=== PATIENT | female | born 1930 | race Caucasian/White ===

== ENCOUNTER 2017-09-04 21:45 | Inpatient (IN) | payer OTHER ==
[~2017-09-04] VITALS: Ht 154.9 cm; Wt 67.1 kg
[2017-09-04 23:10] LABS: BASOPHIL % 1.7 % (0-2); PLATELET COUNT 312 x10^3mcL (130-400)
[2017-09-04 23:11] LABS: RED CELL DISTRIBUTION WIDTH 15.3 % (11.5-14.5)
[2017-09-04 23:35] LABS: microscopic required? YES; urine erythrocyte NEGATIVE (NEGATIVE)
[2017-09-04 23:39] LABS: CHLORIDE SERUM 98 mmol/L (98-107); CREATININE SERUM 1.4 mg/dL (0.6-1.0); GLUCOSE SERUM 130 mg/dL (74-106); SODIUM SERUM 131 mmol/L (136-145)
[2017-09-04 23:43] LABS: ALKALINE PHOSPHATASE 658 U/L (46-116); ALT/SGPT 262 U/L (14-59); AST/SGOT 297 U/L (15-37); BILIRUBIN TOTAL 5.2 mg/dL (0.20-1.00); LIPASE 351 IU/L (73-393); TOTAL PROTEIN, SERUM 6.5 g/dL (6.4-8.2)
[2017-09-04 23:44] LABS: ALBUMIN 2.7 g/dL (3.4-5.0)
[2017-09-05] MEDS ORDERED: SIMVASTATIN20 M1 PO (00:14)
[2017-09-05] MEDS ORDERED: LOSARTAN POTASS50 M1 PO (00:15)
[2017-09-05] MEDS ORDERED: AMBIEN5 MG PO (00:15)
[2017-09-05] MEDS ORDERED: LEVOTHYROXIN0.025 M2 PO (00:15)
[2017-09-05] MEDS ORDERED: PANTOPRAZOLE SO40 M1 PO (00:16)
[2017-09-05] MEDS ORDERED: XARELTO10 M1 PO (00:17)
[2017-09-05] MEDS ORDERED: CATAPRES0.1 MG PO (00:18)
[2017-09-05] MEDS ORDERED: COR3 PO (00:19)
[2017-09-05 02:55] VITALS: BP 132/58
[2017-09-05 03:22] LABS: FREE T4 2.66 ng/dL (0.76-1.46)
[2017-09-05 03:23] LABS: MAGNESIUM 2.1 mg/dL (1.8-2.4); PHOSPHOROUS 2.5 mg/dL (2.5-4.9)
[2017-09-05 03:44] LABS: FREE THYROXINE INDEX 8.7 ug/dL (1.4-4.5); T4(THYROXINE) 21.7 ug/dL (4.7-13.3)
[2017-09-05 04:00] VITALS: BP 109/55
[2017-09-05 05:23] LABS: T3 TOTAL 0.51 ng/mL
[2017-09-05 07:13] LABS: BASOPHIL % 1.1 % (0-2); PLATELET COUNT 305 x10^3mcL (130-400)
[2017-09-05 07:14] LABS: RED CELL DISTRIBUTION WIDTH 15.4 % (11.5-14.5)
[2017-09-05 07:17] LABS: CALCIUM 8.9 mg/dL (8.5-10.1); CARBON DIOXIDE 25.7 mmol/L (21-32); CHLORIDE SERUM 99 mmol/L (98-107); CREATININE SERUM 1.3 mg/dL (0.6-1.0); GLUCOSE SERUM 101 mg/dL (74-106); POTASSIUM SERUM 3.5 mmol/L (3.5-5.1); SODIUM SERUM 130 mmol/L (136-145)
[2017-09-05 08:40] VITALS: BP 107/86
[2017-09-05 09:41] LABS: BILIRUBIN DIRECT 4.64 mg/dL (0.0-0.2); BILIRUBIN TOTAL 5.33 mg/dL (0.20-1.00); TOTAL PROTEIN, SERUM 6.5 g/dL (6.4-8.2)
[2017-09-05 09:42] LABS: ALBUMIN 2.9 g/dL (3.4-5.0)
[2017-09-05 20:45] VITALS: BP 124/47
[2017-09-06 04:52] VITALS: BP 118/55
[2017-09-06 05:04] VITALS: BP 140/83
[2017-09-06 07:45] LABS: BASOPHIL % 0.9 % (0-2); PLATELET COUNT 296 x10^3mcL (130-400)
[2017-09-06 07:51] LABS: RED CELL DISTRIBUTION WIDTH 15.7 % (11.5-14.5)
[2017-09-06 08:03] LABS: CALCIUM 9.2 mg/dL (8.5-10.1); CARBON DIOXIDE 21.4 mmol/L (21-32); CHLORIDE SERUM 103 mmol/L (98-107); CREATININE SERUM 1.2 mg/dL (0.6-1.0); GLUCOSE SERUM 93 mg/dL (74-106); MAGNESIUM 2.1 mg/dL (1.8-2.4); PHOSPHOROUS 3.3 mg/dL (2.5-4.9); POTASSIUM SERUM 3.8 mmol/L (3.5-5.1); SODIUM SERUM 134 mmol/L (136-145)
[2017-09-06 08:06] LABS: BILIRUBIN DIRECT 4.47 mg/dL (0.0-0.2); BILIRUBIN TOTAL 4.8 mg/dL (0.20-1.00); TOTAL PROTEIN, SERUM 6.6 g/dL (6.4-8.2)
[2017-09-06 08:08] LABS: ALBUMIN 2.8 g/dL (3.4-5.0)
[2017-09-06 09:35] VITALS: BP 121/58
[2017-09-06 13:10] VITALS: BP 140/71
[2017-09-06 17:41] VITALS: BP 148/69
[2017-09-06 21:43] VITALS: BP 148/68
[2017-09-07 05:51] VITALS: BP 144/63
[2017-09-07 06:27] LABS: BASOPHIL % 0.4 % (0-2); PLATELET COUNT 315 x10^3mcL (130-400)
[2017-09-07 06:43] LABS: RED CELL DISTRIBUTION WIDTH 15.4 % (11.5-14.5)
[2017-09-07 07:05] LABS: ALKALINE PHOSPHATASE 616 U/L (46-116); ALT/SGPT 243 U/L (14-59); AST/SGOT 262 U/L (15-37); BILIRUBIN TOTAL 5.4 mg/dL (0.20-1.00); CALCIUM 8.5 mg/dL (8.5-10.1); CHLORIDE SERUM 105 mmol/L (98-107); CREATININE SERUM 1.1 mg/dL (0.6-1.0); GLUCOSE SERUM 84 mg/dL (74-106); MAGNESIUM 2.1 mg/dL (1.8-2.4); PHOSPHOROUS 3.4 mg/dL (2.5-4.9); POTASSIUM SERUM 4.6 mmol/L (3.5-5.1); SODIUM SERUM 138 mmol/L (136-145); TOTAL PROTEIN, SERUM 6.7 g/dL (6.4-8.2)
[2017-09-07 07:13] LABS: ALBUMIN 2.7 g/dL (3.4-5.0)
[2017-09-07 08:56] VITALS: BP 142/61
[2017-09-07 17:01] VITALS: BP 147/64
[2017-09-07 20:57] VITALS: BP 149/68
[2017-09-08 05:59] VITALS: BP 144/69
[2017-09-08 06:42] LABS: BASOPHIL % 0.8 % (0-2); PLATELET COUNT 310 x10^3mcL (130-400)
[2017-09-08 07:08] LABS: ALKALINE PHOSPHATASE 575 U/L (46-116); ALT/SGPT 256 U/L (14-59); AST/SGOT 268 U/L (15-37); BILIRUBIN TOTAL 5.2 mg/dL (0.20-1.00); CALCIUM 8.8 mg/dL (8.5-10.1); CARBON DIOXIDE 24.3 mmol/L (21-32); CHLORIDE SERUM 105 mmol/L (98-107); CREATININE SERUM 1.1 mg/dL (0.6-1.0); GLUCOSE SERUM 77 mg/dL (74-106); MAGNESIUM 2.1 mg/dL (1.8-2.4); PHOSPHOROUS 3.5 mg/dL (2.5-4.9); POTASSIUM SERUM 4.9 mmol/L (3.5-5.1); SODIUM SERUM 138 mmol/L (136-145); TOTAL PROTEIN, SERUM 6.7 g/dL (6.4-8.2)
[2017-09-08 07:11] LABS: ALBUMIN 2.8 g/dL (3.4-5.0)
[2017-09-08 08:12] VITALS: BP 134/74
[2017-09-08 08:48] VITALS: BP 121/64
[2017-09-08 12:16] VITALS: BP 146/65
[2017-09-08 16:35] VITALS: BP 141/68
[2017-09-08 21:39] VITALS: BP 129/63
[2017-09-09 04:39] VITALS: BP 128/61
[2017-09-09 07:18] LABS: ALKALINE PHOSPHATASE 566 U/L (46-116); ALT/SGPT 307 U/L (14-59); AST/SGOT 307 U/L (15-37); BILIRUBIN TOTAL 4.92 mg/dL (0.20-1.00); CALCIUM 9.7 mg/dL (8.5-10.1); CHLORIDE SERUM 103 mmol/L (98-107); CREATININE SERUM 1.2 mg/dL (0.6-1.0); GLUCOSE SERUM 90 mg/dL (74-106); SODIUM SERUM 136 mmol/L (136-145); TOTAL PROTEIN, SERUM 7.2 g/dL (6.4-8.2)
[2017-09-09 07:22] LABS: ALBUMIN 2.9 g/dL (3.4-5.0)
[2017-09-09 08:28] LABS: BASOPHIL % 1.5 % (0-2); PLATELET COUNT 351 x10^3mcL (130-400)
[2017-09-09 08:38] LABS: RED CELL DISTRIBUTION WIDTH 14.8 % (11.5-14.5)
[2017-09-09 09:18] VITALS: BP 137/62
[2017-09-09 13:05] LABS: MITOCHONDRIAL ANTIBODY 117.8 Units (0.0-20.0)
[2017-09-09 14:07] VITALS: BP 128/66
[2017-09-09 22:01] VITALS: BP 137/64
[2017-09-10 05:08] VITALS: BP 126/62
[2017-09-10 06:46] LABS: CALCIUM 9.5 mg/dL (8.5-10.1); CARBON DIOXIDE 24.2 mmol/L (21-32); CHLORIDE SERUM 103 mmol/L (98-107); CREATININE SERUM 1.1 mg/dL (0.6-1.0); GLUCOSE SERUM 76 mg/dL (74-106); MAGNESIUM 2.2 mg/dL (1.8-2.4); PHOSPHOROUS 4.2 mg/dL (2.5-4.9); POTASSIUM SERUM 4.6 mmol/L (3.5-5.1); SODIUM SERUM 134 mmol/L (136-145)
[2017-09-10 07:47] LABS: BASOPHIL % 0.5 % (0-2); PLATELET COUNT 312 x10^3mcL (130-400)
[2017-09-10 07:48] LABS: RED CELL DISTRIBUTION WIDTH 15.6 % (11.5-14.5)
[2017-09-10 09:32] VITALS: BP 132/68
[2017-09-10] MEDS ORDERED: BEN25 PO (12:16)
[2017-09-10 14:07] VITALS: BP 126/70
== END 2017-09-10 14:40 | disposition home or self-care (01) | DRG 391 ==
LOC: ED 21:45 → DU 09-05 01:10
PROVIDERS: Emergency Medicine; Family Medicine; Internal Medicine; Internal Medicine Gastroenterology
DX: K21.9 Gastro-esophageal reflux disease without esophagitis (principal); E43 Unspecified severe protein-calorie malnutrition; N17.0 Acute kidney failure with tubular necrosis; N39.0 Urinary tract infection, site not specified; E87.1 Hypo-osmolality and hyponatremia; E86.0 Dehydration; I10 Essential (primary) hypertension; R62.7 Adult failure to thrive; R73.03 Prediabetes; R80.9 Proteinuria, unspecified; I35.1 Nonrheumatic aortic (valve) insufficiency; I34.0 Nonrheumatic mitral (valve) insufficiency; I36.1 Nonrheumatic tricuspid (valve) insufficiency; M62.50 Muscle wasting and atrophy, not elsewhere classified, unspecified site; R74.0 Nonspecific elevation of levels of transaminase and lactic acid dehydrogenase [LDH]; E05.90 Thyrotoxicosis, unspecified without thyrotoxic crisis or storm; Z86.73 Personal history of transient ischemic attack (TIA), and cerebral infarction without residual deficits
CPT/HCPCS: 78226; 83516; 83880; 84439; 97535-GP; A9537; J0696; J7030; Q0092; Q0163